=== PATIENT | female | born 1990 | race Two or more races ===

== ENCOUNTER → 2024-09-09 | Day surgery (SDC) | payer OTHER ==
[2024-09-08 10:50] LABS: Hematocrit 40.0 % (36.0-46.0); Hemoglobin 13.4 g/dL (12.2-16.2); Mean Corpuscular Hemoglobin 28.8 pg (28.0-32.0); Mean Corpuscular Volume 86.1 fL (80.0-100.0); Nucleated Red Blood Cells % 0.0 %
[2024-09-08 11:04] LABS: Urine Protein, UAD TRACE (Negative)
[2024-09-08 11:06] LABS: INR 1.13 (0.9-1.15); Partial Thromboplastin Time 27.9 SEC (24.5-34.5); Prothrombin Time 11.8 sec (9.3-11.8)
[2024-09-08 11:11] LABS: Alanine Aminotransferase 17 U/L (7-40); Alkaline Phosphatase 61 U/L (46-116); Anion Gap 8 (5-15); BUN/Creatinine Ratio 18.1 (10.0-20.0); Blood Urea Nitrogen 15 mg/dL (9-23); Calcium 10.1 mg/dL (8.7-10.4); Carbon Dioxide 29 mmol/L (20-31); Chloride 106 mmol/L (98-107); Glucose 94 mg/dL (74-106); Potassium 3.9 mmol/L (3.5-5.1); Sodium 143 mmol/L (136-145); Total Protein 6.8 g/dL (5.7-8.2)
[2024-09-08 11:12] LABS: Albumin 4.6 g/dL (3.2-4.8); Bilirubin, Total 0.4 mg/dL (0.2-1.0)
[~2024-09-09] VITALS: Ht 162.6 cm; Wt 54.4 kg
[~2024-09-09] MED LIST: BUPR150T8 PO; CELECOXIB 100 MG CAP ONE; FER325T PO; FLUMAZENIL 0.1 MG/ML INJ 10ML MDV IV PRN; GABAPENTIN 300 MG CAP ONE; GLYCOPYRROLATE 0.2 MG/ML 1ML VIAL ONE; HYDROmorphone HCL 2 MG/ML VL/or syr IV PRN; KETAMINE 50mg/ML 1ml syringe ONE; KETOROLAC TROMETH 30 MG/ML 1ML VIAL ONE; LIDOCAINE 2% (LOCAL ANESTH.) PF 5ml SDV ONE; LIDOCAINE HCL 2% TOP JELLY 5ML TOP ONE; NALOXONE HCL 0.4 MG/ML VIAL IV PRN; ONDANSETRON HCL 4 MG/2 ML VIAL ONE; PROPOFOL 10 MG/ML 20 ML IV ONE; ROCURONIUM 10MG/ML 10ML VIAL IV ONE; SUGAMMADEX 200mg/2ml Vial (100MG/ML) IV ONE; fentaNYL CITRATE 100 MCG/2 ML VL IV PRN; fentaNYL CITRATE 100 MCG/2 ML VL ONE; hydrALAZINE HCL 20 MG/ML VL IV PRN
[2024-09-09] MEDS: ACETAMINOPHEN IV 1000 MG/100ML (10MG/ML) IV ONE (07:34)
[2024-09-09] MEDS: GABAPENTIN 300 MG CAP PO ONE (07:35)
[2024-09-09] MEDS: CELECOXIB 100 MG CAP PO ONE (07:35)
[2024-09-09] MEDS: ceFAZolin 2 GM/D5W50ml 50 ML IV ONE (07:38)
[2024-09-09] MEDS: ACETAMINOPHEN IV 100 ML IV ONE (07:38)
[2024-09-09] MEDS: LIDOCAINE 1%-Mpf/Epinephrine 1:200,000 30ml VIAL ONE (08:11)
[2024-09-09] MEDS: BUPIVACAINE 0.5% P/F INJ 10 ML VIAL ONE (08:11)
[2024-09-09 08:22] VITALS: PULSE 78; RESP 18; TEMP 98.1; O2SAT 100
[2024-09-09] MEDS: ONDANSETRON HCL 4 MG/2 ML VIAL IV PRN (08:56)
--- NOTE | 2024-09-09 09:09 | DVHOP ---
DATE OF SURGERY: 09/09/2024 PREOPERATIVE DIAGNOSIS: Supraumbilical hernia. POSTOPERATIVE DIAGNOSIS: Supraumbilical hernia. SURGEON: Neftali Melendez MD ANESTHESIA: General. ENGINEERING TECHNICIAN: Dhruv Dias. PROCEDURE: Repair of supraumbilical hernia. DESCRIPTION OF PROCEDURE: Under adequate anesthesia with the patient's skin prepped and draped and infiltrated with 0.25% Marcaine with epinephrine for postop analgesia, the horizontal incision was made over a visible palpable bulge approximately 2 cm above the umbilicus. There was a preexisting scar from what appears to be a healed umbilical piercing, which distorted the scar somewhat. The patient's subcutaneous tissues were divided down onto the fibers of the rectus muscle. There was a defect which measured approximately 1 cm in diameter through which omental fat was protruding. This was reduced. The hernia sac was excised and submitted. The hernia defect was closed using 0 nonabsorbable sutures. The wound was then approximated using Monocryl sutures, Dermabond glue, and Steri-Strips. The patient remained stable throughout the procedure, left the operating room following an accurate needle and sponge counts. The patient's was thoroughly informed in the waiting room. MD STACY Olmedo/VALE TID: [id number] RECEIPT: [id number]
[2024-09-09 09:25] VITALS: BP 119/74; PULSE 98; RESP 14; O2SAT 99
== END | disposition home or self-care (01) ==
LOC: SUR 06:18
PROVIDERS: ATTEND Surgery
DX: K42.9 Umbilical hernia without obstruction or gangrene (principal); Z98.890 Other specified postprocedural states
CPT/HCPCS: 36415; 49591; 80053; 81001; 84702; 85025; 85610; 85730; 86850; 86900; 86901; 88302; A4315; J0690; J1100; J1885; J2003; J2004; J2405; J2704; J3490; J0131